=== PATIENT | female | born 1970 | race Caucasian/White ===

== ENCOUNTER 2017-05-31 14:44 | Emergency (ER) | payer OTHER ==
[2017-05-31 14:52] VITALS: BP 160/92
--- NOTE | 2017-05-31 15:21 | ER Document Report ---
HPI - HPI Pain Level: 3 Notes: Patient is a 46-year-old female presents the ED complaining of right shoulder/ neck pain with an occasional tingling into her right shoulder x1.5mos. Pt states that she was eval'd by an urgent care when she was at home ([facility]) and they did not find anything. Pt states that she is just concerned bc of the occ tingling sensation. Pt denies any known injury. Pt states that she does sleep on her right side at night. Flexion of her right arm can exac her symptom(s). She has tried otc aleve with some help. No loss of control of bowel/bladder. No muscle weakness/paralysis. Denies any changes in vision/mentation/speech. Denies any headache, fever, URI, sore throat, cough, sob, dyspnea, cp, palp, syncope, abd pain, n/v/d, dysuria, urinary retention, hematuria, other joint pains, rash. No IV drug use or smoking. No significant PMH aside from HTN and pt is supposed to be on Toprol. - ROS Notes: REVIEW OF SYSTEMS: CONSTITUTIONAL : Denies fever, chills, or sweats. Denies recent illness. EENT: Denies eye, ear, throat, or mouth pain or symptoms. Denies nasal or sinus congestion or discharge. Denies throat, tongue, or mouth swelling or difficulty swallowing. CARDIOVASCULAR: Denies chest pain. Denies palpitations or racing or irregular heart beat. Denies ankle edema. RESPIRATORY: Denies cough, cold, or chest congestion. Denies shortness of breath, difficulty breathing, or wheezing. GASTROINTESTINAL: Denies abdominal pain or distention. Denies nausea, vomiting , or diarrhea. Denies blood in vomitus, stools, or per rectum. Denies black, tarry stools. Denies constipation. GENITOURINARY: Denies difficulty urinating, painful urination, burning, frequency, blood in urine, or discharge. MUSCULOSKELETAL: see hpi SKIN: Denies rash, lesions or sores. NEUROLOGICAL: Denies confusion or altered mental status. Denies passing out or loss of consciousness. Denies dizziness or lightheadedness. Denies headache. Denies weakness or paralysis or loss of use of either side. Denies problems with gait or speech. ALL OTHER SYSTEMS REVIEWED AND NEGATIVE. Dictation was performed using [employer] recognition software - DERM Skin Color: Normal Past Medical History - Social History Smoking Status: Unknown if Ever Smoked Family History: Reviewed & Not Pertinent Patient has suicidal ideation: No Patient has homicidal ideation: No Renal/ Medical History: Denies: Hx Peritoneal Dialysis Vertical Provider Document - CONSTITUTIONAL Agree With Documented VS: Yes Notes: PHYSICAL EXAMINATION: GENERAL: Well-appearing, well-nourished and in no acute distress. HEAD: Atraumatic, normocephalic. Non-tender. EYES: Pupils equal round and reactive to light, extraocular movements intact, sclera anicteric, conjunctiva are normal. ENT: EAC clear b/l. TM's intact b/l without erythema, fluid, or perforation. Nares patent and without discharge. oropharynx clear without exudates. No tonsilar hypertrophy or erythema. Moist mucous membranes. No sinus tenderness. NECK: Normal range of motion, supple without lymphadenopathy. No rigidity/ meningismus. Spurling negative. Non-tender. Chest: non-tender. equal rise/fall. LUNGS: Breath sounds clear to auscultation bilaterally and equal. No wheezes rales or rhonchi. HEART: Regular rate and rhythm without murmurs, rubs, gallops. Musculoskeletal: UE's b/l: FROM to passive/active. Strength 5+/5. Rt shoulder: + trigger point to soft tissue near the medial border of the rt scapula. Pt states that the tenderness elicited is the pain described. + mild muscle spasming. Non-tender shoulder/arm. No vertebral point tenderness or rib tenderness. Extremities: No cyanosis, clubbing, or edema b/l. Peripheral pulses 2+. Capillary refill less than 2 seconds. NEUROLOGICAL: Cranial nerves grossly intact. Normal speech, normal gait. Normal sensory, motor exams. Reflexes 2+ b/l. PSYCH: Normal mood, normal affect. SKIN: Warm, Dry, normal turgor, no rashes or lesions noted. No ecchymosis, abrasion, laceration. - RESPIRATORY O2 Sat by Pulse Oximetry: 100 Course - Re-evaluation Re-evalutation: 05/31/17 15:32 Patient is afebrile, well-hydrated, 46-year-old female presents the ED with a found trigger point in her right scapular border, and mild muscle spasming in the area. No imaging is warranted at this time based on the H&P today. Vitals are stable. PE otherwise unremarkable for any neurological focal deficits, neck , back, shoulder tenderness otherwise. Thoroughly reviewed options with the patient is in trigger point injections, consult with chiropractic/physical therapy/orthopedics/massage therapy, and conservative measures her symptoms. Recommend she start conservative first. I will send her home with a prescription for Flexeril. Drowsiness precautions explained and the patient is not to operate heavy machinery while on the medication. Low suspicion for any fracture, epidural mass lesion, dissection, acs, pe, severe spinal stenosis causing neurological deficits, meningismus, or dissection. Recheck with her PCM in 2-3 days. Return to the ED with any worsening/concerning symptoms otherwise as reviewed. Patient is in agreement. - Vital Signs Vital signs: Temp Pulse Resp BP Pulse Ox 98.1 F 72 14 160/92 H 100 05/31/17 14:49 05/31/17 14:49 05/31/17 14:49 05/31/17 14:49 05/31/17 14:49 Discharge - Discharge Clinical Impression: Trigger point of right shoulder region, Muscle spasm Condition: Stable Disposition: HOME, SELF-CARE Additional Instructions: Rest, Ice, Compression, Elevation Use meds as directed, watch for drowsiness and do not operate heavy machinery on medication Tylenol/ibuprofen as needed Light stretches daily Strength exercises as able Moist heat and massage may help F/u with your PCP in 2-3 days for a recheck Consider consult(s) with Orthopedics, Chiropractic, Physical therapy for ongoing /worsening symptoms Return to the ED with any worsening symptoms and/or development of fever, headache, chest pain, palpitations, syncope, shortness of breath, trouble breathing, abdominal pain, n/v/d, blood in stool/urine, loss of control of bowel /bladder, urinary retention, muscle weakness/paralysis, worsening numbness/ tingling, or other worsening symptoms that are concerning to you. Prescriptions: Cyclobenzaprine HCl [Flexeril 10 mg Tablet] 10 mg PO TIDP PRN #15 tab PRN Reason: Forms: Elevated Blood Pressure Referrals: [facility] ([facility]) [Provider Group] - Follow up as needed
== END 2017-05-31 15:24 | disposition home or self-care (01) ==
LOC: ER 14:44
DX: M62.838 Other muscle spasm (principal); M25.511 Pain in right shoulder; M54.2 Cervicalgia; I10 Essential (primary) hypertension
CPT/HCPCS: 99283

== ENCOUNTER 2017-08-06 13:20 | Emergency (ER) | payer OTHER ==
--- NOTE | 2017-08-06 15:11 | ER Document Report ---
ED Wound - General Chief Complaint: Laceration Stated Complaint: LACERATION TO LEFT INDEX FINGER Time Seen by Provider: 08/06/17 14:01 Notes: 46 yo female c/o laceration to left index finger. cut finger today while cutting chicken. + active bleeding TRAVEL OUTSIDE OF THE [place] IN LAST 30 DAYS: No - HPI Patient complains to provider of: Laceration Occurred: Just prior to arrival Onset/Duration: Sudden Quality of pain: Burning Context: Injury Skin Temperature: Warm Skin Color: Normal Capillary refill: < 3 seconds Sensations intact: Yes Distal pulses present: Yes Associated Symptoms: Avulsion, Bleeding - Related Data Allergies/Adverse Reactions: Sulfa (Sulfonamide Antibiotics) Allergy (Verified 08/06/17 13:28) Past Medical History - General Information source: Patient - Social History Smoking Status: Never Smoker Chew tobacco use (# tins/day): No Frequency of alcohol use: None Drug Abuse: None Lives with: Family Family History: Reviewed & Not Pertinent - Past Medical History Cardiac Medical History: Reports: Hx Hypertension Renal/ Medical History: Denies: Hx Peritoneal Dialysis Past Surgical History: Reports: Hx Abdominal Surgery - Gastric sleeve, Hx Cholecystectomy - Immunizations Hx Diphtheria, Pertussis, Tetanus Vaccination: No Review of Systems - Review of Systems Constitutional: No symptoms reported EENT: No symptoms reported Cardiovascular: No symptoms reported Respiratory: No symptoms reported Gastrointestinal: No symptoms reported Genitourinary: No symptoms reported Female Genitourinary: No symptoms reported Musculoskeletal: No symptoms reported Skin: See HPI Hematologic/Lymphatic: No symptoms reported Neurological/Psychological: No symptoms reported Physical Exam - Vital signs Vitals: Temp Pulse Resp BP Pulse Ox 98.4 F 84 18 151/90 H 100 08/06/17 13:28 08/06/17 13:28 08/06/17 13:28 08/06/17 13:28 08/06/17 13:28 Interpretation: Normal - General General appearance: Appears well, Alert - HEENT Head: Normocephalic, Atraumatic Eyes: Normal Pupils: PERRL - Respiratory Respiratory status: No respiratory distress Chest status: Nontender Breath sounds: Normal Chest palpation: Normal - Cardiovascular Rhythm: Regular Heart sounds: Normal auscultation Murmur: No - Abdominal Inspection: Normal Distension: No distension Bowel sounds: Normal Tenderness: Nontender Organomegaly: No organomegaly - Back Back: Normal, Nontender - Extremities General upper extremity: Normal inspection, Nontender, Normal color, Normal ROM , Normal temperature General lower extremity: Normal inspection, Nontender, Normal color, Normal ROM , Normal temperature, Normal weight bearing. No: Unique's sign - Neurological Neuro grossly intact: Yes Cognition: Normal Orientation: AAOx4 [place] Coma Scale Eye Opening: Spontaneous [place] Coma Scale Verbal: Oriented [place] Coma Scale Motor: Obeys Commands [place] Coma Scale Total: 15 Speech: Normal Motor strength normal: LUE, RUE, LLE, RLE Sensory: Normal - Psychological Associated symptoms: Normal affect, Normal mood - Skin Skin Temperature: Warm Skin Moisture: Dry Skin Color: Normal Skin irregularity: Laceration - avulsion to distal palmar index finger. + active bleeding. Course - Re-evaluation Re-evalutation: 08/06/17 15:09 pt has avulasion wound. sugi-jayson and pressure dressing applied to finger. bleeding controlled at this time. SMC intact. finger tip cap applied for protection pt stable for discharge - Vital Signs Vital signs: Temp Pulse Resp BP Pulse Ox 98.4 F 84 18 151/90 H 100 08/06/17 13:28 08/06/17 13:28 08/06/17 13:28 08/06/17 13:28 08/06/17 13:28 Discharge - Discharge Clinical Impression: Avulsion of skin of finger Qualifiers: Encounter type: initial encounter Qualified Code(s): S61.209A - Unspecified open wound of unspecified finger without damage to nail, initial encounter Condition: Stable Disposition: HOME, SELF-CARE Instructions: Avulsion Injury ([facility]) Additional Instructions: You may remove dressing in 24h. gently wash area but do not remove the sugicele that was applied to your wound. it will dissolve and peel off on its own like a scab use finger tip splint for protection follow up with your primary care as needed return to ER for any worsening Forms: Return to Work
[2017-08-06] MEDS ORDERED: DIPH/PERTUSS(ACELL)/TETANUS VAC/PF 0.5 ML SYR (>=10YO) IM ONE (15:14)
[2017-08-06 15:54] VITALS: BP 139/93
== END 2017-08-06 15:44 | disposition home or self-care (01) ==
LOC: ER 13:20
PROC: 2W3KX1Z Immobilization of Left Finger using Splint (ICD-10-PCS; principal; 2017-08-06)
DX: S61.209A Unspecified open wound of unspecified finger without damage to nail, initial encounter (principal); W45.8XXA Other foreign body or object entering through skin, initial encounter; Y93.G1 Activity, food preparation and clean up
CPT/HCPCS: 90471; 90715; 99282

== ENCOUNTER 2019-05-27 08:37 | Emergency (ER) | payer MEDICAID ==
[2019-05-27 09:40] LABS: APPEARANCE,URINE CLOUDY; BILIRUBIN,URINE NEGATIVE (NEGATIVE); GLUCOSE, URINE NEGATIVE (NEGATIVE); KETONES,URINE NEGATIVE (NEGATIVE); LEUKOCYTE ESTERASE,URINE NEGATIVE (NEGATIVE); NITRITE,URINE NEGATIVE (NEGATIVE); PROTEIN,URINE NEGATIVE (NEGATIVE); URINE SPECIFIC GRAVITY 1.005; UROBILINOGEN,URINE NEGATIVE mg/dL (<2.0)
[2019-05-27 09:44] LABS: COLOR,URINE STRAW
--- NOTE | 2019-05-27 11:31 | RADIOLOGY REPORT (SQ) ---
EXAM DESCRIPTION: U/S NON-OB PELVIS TV W/O DOP COMPLETED DATE/TIME: 05/27/2019 11:20 am REASON FOR STUDY: difficulty urinating, COMPARISON: None. TECHNIQUE: Dynamic and static grayscale images acquired of the pelvis via transvaginal approach and recorded on PACS. Additional selected color Doppler and spectral images recorded. Additional transabdominal imaging was performed LIMITATIONS: None. FINDINGS: UTERUS: There is enlargement of the uterine fundus by fibroids, the largest is 11 x 9 x 8 cm in size and heterogeneous in echotexture. Uterus is 17 x 10 x 6 cm in size. ENDOMETRIAL STRIPE: No focal or generalized thickening. No masses. Endometrial stripe 3 mm in thickn ess CERVIX: Closed, 2.5 cm in length. No nabothian cysts. RIGHT OVARY AND DOPPLER: Normal size right ovary 2.9 x 2.4 x 2 cm in size. No worrisome masses. Philomena l arterial vascular flow without evidence for torsion. LEFT OVARY AND DOPPLER: Normal size left ovary 3.9 x 2.7 x 2.5 cm in size with a 2.8 cm simple cyst. No worrisome masses. Normal arterial vascular flow without evidence for torsion. FREE FLUID: None noted. OTHER: No other significant finding. IMPRESSION: Large uterine fundal fibroid. Otherwise unremarkable study. TECHNICAL DOCUMENTATION: JOB ID: [id number]- All Rights Reserved Rev-04/10 Reading location - IP/workstation name: [email or web address]
[2019-05-27] MEDS ORDERED: HYDROCODONE/ACETAMINOPHEN 5-325 MG (6 TAB/ER DISP) PO PRN (12:21)
[2019-05-27] MEDS ORDERED: ONDANSETRON ODT 4 MG TAB (6 TAB/ER DISP) PO PRN (12:21)
--- NOTE | 2019-05-27 12:21 | ER Document Report ---
ED General - General Chief Complaint: Lower Abdominal Pain Stated Complaint: FLANK PAIN Time Seen by Provider: 05/27/19 09:04 Notes: Pleasant 48-year-old female presents to the emergency department with chief complaint of bladder pain since last night. She woke up this morning and remains was unable to urinate. Her last BM was this morning. She said that when she got to the emergency department she has voided normally 2 times. She denies any fevers or chills, complains of nausea, complains of lower abdominal pain. She does have a known existing uterine fibroid and is under the care of Dr. 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 No other complaints TRAVEL OUTSIDE OF THE [place] IN LAST 30 DAYS: No - Related Data Allergies/Adverse Reactions: Sulfa (Sulfonamide Antibiotics) Allergy (Verified 08/06/17 13:28) Past Medical History - Social History Smoking Status: Never Smoker Chew tobacco use (# tins/day): No Frequency of alcohol use: Occasional Drug Abuse: None Family History: Reviewed & Not Pertinent Patient has suicidal ideation: No Patient has homicidal ideation: No - Past Medical History Cardiac Medical History: Reports: Hx Hypertension Renal/ Medical History: Denies: Hx Peritoneal Dialysis Past Surgical History: Reports: Hx Abdominal Surgery - Gastric sleeve, Hx Cholecystectomy - Immunizations Hx Diphtheria, Pertussis, Tetanus Vaccination: No Review of Systems - Review of Systems Constitutional: See HPI EENT: No symptoms reported Cardiovascular: See HPI Respiratory: See HPI Gastrointestinal: See HPI Genitourinary: See HPI Female Genitourinary: See HPI Musculoskeletal: No symptoms reported Skin: No symptoms reported Hematologic/Lymphatic: No symptoms reported Neurological/Psychological: No symptoms reported Physical Exam - Vital signs Vitals: Temp Pulse Resp BP Pulse Ox 98.2 F 81 16 132/77 H 100 05/27/19 08:42 05/27/19 08:42 05/27/19 08:42 05/27/19 08:42 05/27/19 08:42 - Notes Notes: PHYSICAL EXAMINATION: Reviewed vital signs and charting by RN GENERAL: Alert, interacts well. No acute distress. HEAD: Normocephalic, atraumatic. EYES: Pupils equal and round. Extraocular movements intact. ENT: Oral mucosa moist, tongue midline. NECK: Full range of motion. Trachea midline. LUNGS: Clear to auscultation bilaterally, no wheezes, rales, or rhonchi. No respiratory distress. HEART: Regular rate and rhythm. No murmur ABDOMEN: soft, suprapubic tenderness to palpation. No distention. Bowel sounds present EXTREMITIES: Moves all 4 extremities spontaneously. No edema, No cyanosis. PSYCH: Normal affect, normal mood. SKIN: Warm, dry, normal turgor. No rashes or lesions noted. Course - Re-evaluation Re-evalutation: 05/27/19 12:20 Overall well-appearing in no acute distress. Transvaginal ultrasound showed a large fundal uterine fibroid. Patient is able to void without problems and just micturated. She does have close follow-up with [facility]. She is stable for discharge. - Vital Signs Vital signs: Temp Pulse Resp BP Pulse Ox 98.2 F 81 16 132/77 H 100 05/27/19 08:42 05/27/19 08:42 05/27/19 08:42 05/27/19 08:42 05/27/19 08:42 - Laboratory Laboratory results interpreted by me: 05/27/19 09:21 Urine Blood SMALL H Discharge - Discharge Clinical Impression: Uterine fibroid Qualifiers: Uterine leiomyoma location: unspecified location Qualified Code(s): D25.9 - Leiomyoma of uterus, unspecified Condition: Good Disposition: HOME, SELF-CARE Additional Instructions: You were seen in the emergency department this morning for abdominal pain. The ultrasound showed that you have a large uterine fibroid. There was nothing else concerning on the ultrasound. Please make sure you see Dr. Alvarado on Friday for your follow-up appointment on June 03. In the meantime, if you have severe unremitting pain, intractable nausea or vomiting, urinary retention, abnormal vaginal bleeding, or any other concerning symptoms please immediately return to the emergency department.
[2019-05-27 12:34] VITALS: BP 130/70
== END 2019-05-27 12:33 | disposition home or self-care (01) ==
LOC: ER 08:37
DX: D25.9 Leiomyoma of uterus, unspecified (principal); R10.30 Lower abdominal pain, unspecified; I10 Essential (primary) hypertension; Z88.2 Allergy status to sulfonamides; Z90.49 Acquired absence of other specified parts of digestive tract
CPT/HCPCS: 76830; 81001; 99284

== ENCOUNTER 2019-07-28 08:02 | Day surgery (SDC) | payer BC, MEDICAID, OTHER ==
[2019-07-21 11:14] LABS: HEMATOCRIT 37.8 % (36.0-47.0); HEMOGLOBIN 13.3 g/dL (12.0-15.5); MEAN CORPUSCULAR HEMOGLOBIN 33.5 pg (27.0-33.4); MEAN CORPUSCULAR HGB CONC 35.1 g/dL (32.0-36.0); MEAN CORPUSCULAR VOLUME 96 fl (80-97); PLATELET COUNT 289 10^3/uL (150-450); RED BLOOD COUNT 3.96 10^6/uL (3.72-5.28); RED CELL DISTRIBUTION WIDTH 12.6 % (11.5-14.0); WHITE BLOOD COUNT 5.3 10^3/uL (4.0-10.5)
[2019-07-21 11:22] LABS: APPEARANCE,URINE CLOUDY; BILIRUBIN,URINE NEGATIVE (NEGATIVE); COLOR,URINE YELLOW; GLUCOSE, URINE NEGATIVE (NEGATIVE); KETONES,URINE NEGATIVE (NEGATIVE); LEUKOCYTE ESTERASE,URINE NEGATIVE (NEGATIVE); NITRITE,URINE NEGATIVE (NEGATIVE); PROTEIN,URINE NEGATIVE (NEGATIVE); URINE SPECIFIC GRAVITY 1.017; UROBILINOGEN,URINE NEGATIVE mg/dL (<2.0)
[2019-07-21 11:33] LABS: ALBUMIN 4.1 g/dL (3.5-5.0); ALKALINE PHOSPHATASE 64 U/L (38-126); ANION GAP 8 (5-19); ASPARTATE AMINO TRANSFERASE 21 U/L (14-36); BILIRUBIN,DIRECT 0.2 mg/dL (0.0-0.4); BILIRUBIN,TOTAL 0.5 mg/dL (0.2-1.3); BLOOD UREA NITROGEN 15 mg/dL (7-20); CALCIUM 9.6 mg/dL (8.4-10.2); CARBON DIOXIDE 34 mmol/L (22-30); CHLORIDE 96 mmol/L (98-107); GLUCOSE 113 mg/dL (75-110); TOTAL PROTEIN 6.7 g/dL (6.3-8.2)
[2019-07-21 11:39] LABS: POTASSIUM 2.9 mmol/L (3.6-5.0)
--- NOTE | 2019-07-21 13:09 | EKG REPORT ---
SEVERITY:- NORMAL ECG - SINUS BRADYCARDIA 51. : Confirmed by: Randell Azar MD 21-Jul-2019 13:09:30
[~2019-07-28 08:02] MED LIST: CEFAZOLIN SODIUM 2 GM in DEXTROSE 5%-WATER 100 ML IV PRN; LACTATED RINGERS 1000 ML IV PRN
[2019-07-28] MEDS ORDERED: FENTANYL CITRATE INJ/PF 250 MCG/5 ML AMPULE ONE (10:04)
[2019-07-28] MEDS ORDERED: MIDAZOLAM 2 MG/2 ML INJ ONE (10:04)
[2019-07-28] MEDS ORDERED: PROPOFOL INJ 200 MG/20 ML VIAL IV ONE (10:04)
[2019-07-28] MEDS ORDERED: BUPIVACAINE HCL 0.25 % INJ/PF (2.5 MG/1 ML) 30 ML VIAL ONE (10:16)
[2019-07-28] MEDS ORDERED: FENTANYL CITRATE INJ/PF 100 MCG/2 ML AMPUL IV PRN ×3 (11:48)
[2019-07-28] MEDS ORDERED: DIPHENHYDRAMINE HCL 50 MG/ML VIAL IV PRN ×2 (11:48→21:20)
[2019-07-28] MEDS ORDERED: MEPERIDINE HCL/PF INJ 25 MG/1 ML DISP.SYRIN IV PRN (11:48)
[2019-07-28] MEDS ORDERED: PROMETHAZINE HCL INJ 25 MG/1 ML VIAL IV PRN ×2 (11:48)
--- NOTE | 2019-07-28 12:45 | Operative Report ---
Operative Report DATE OF SURGERY: 07/28/19 PREOPERATIVE DIAGNOSIS: Menorrhagia and fibroid uterus POSTOPERATIVE DIAGNOSIS: Same OPERATION: Diagnostic laparoscopy open laparotomy with a total abdominal hysterectomy and BSO SURGEON: COLETTE DOAN 2ND Supervisor Pressing Department: GONZALO BOOTHE ANESTHESIA: GA TISSUE REMOVED OR ALTERED: Uterus tubes and ovaries COMPLICATIONS: Adhesions with endometrioma ESTIMATED BLOOD LOSS: 50 cc PROCEDURE: Was placed in the dorsolithotomy position prepped draped sterile fashion. Speculum placed cervix visualized and grasped with single-tooth tenaculum. A 2- 0 Vicryl was placed to the lip of the cervix. Sample of that of 9 cm the uterine manipulator was placed. Speculum was removed and attention turned to the abdomen where a supraumbilical midline incision was made the trocar was reduced with insufflation of the abdomen. The second puncture was made lateral to the first on the left and of 5 was introduced and a third on the right again with the 5 trocar being introduced and an accessory port above the iliac crest on the right. Robot was docked in usual fashion. Was made to enter the cul-de-sac and found to be possible secondary to adhesions the right ovary was adhered to the aspect of the ovary on the right and along the right adnexal wall. Left ovary was adhered along the left adnexa wall. Large uterine fibroid anteriorly and it was a possible to see around that with the robot. Decision was made intraoperatively open the abdomen. Robot was undocked and the abdomen deflated and trocar sleeves were removed. The incisions were closed with 4-0 Vicryl subcu. A Pfannenstiel incision was made. The incision extended through the subcutaneous tissue and fascia with sharp dissection. Muscle was bluntly sharply divided and the parietal peritoneum was entered with sharp dissection. The bowel was packed with moistened packs and the O'Marek-O'Chance retractor was placed. Uterus was grasped with a Susan thyroid clamp. The left utero- ovarian ligament was clamped divided suture with 2-0 Vicryl this was continued on the right. The right and left round ligament were identified and clamped divided Achilles free space was entered and both sides were divided and sutured with 2-0 Vicryl. The bladder flap was then created with blunt and sharp di ssection. Her uterine fibroid was then removed. All clamps only several liters each pedicle begins clamped divided and suture with 2-0 Vicryl to continue down to the level of the cervix. Cross-clamp and sharply incised and the uterus and cervix were removed. The right fallopian tube and ovary were then identified grasped with Zenaida clamp the medial pelvis on the right was identified clamped and divided suture with free tie of 2-0 Vicryl followed by a suture tie of 2-0 Vicryl right tube and ovary were thus removed. Left again the endopelvic was identified the ureter was found to be out of the way the inferior pelvic was clamped and divided in the left tube and ovary were removed. Multiple areas of oozing there were encountered these were clamped and sutured with free ties following this it was placed in the pelvis with Interceed. States was noted. It was removed as were the PACS. The parietoperitoneum was then closed using 2- 0 Vicryl the fascia and closed using 0 Vicryl and the skin was closed with subcutaneous absorbable louis. The patient's urine remained clear after procedure she was taken recovery in good condition
[2019-07-28] MEDS: FENTANYL CITRATE INJ/PF 100 MCG/2 ML AMPUL ONE ×2 (12:51→13:01)
[2019-07-28] MEDS ORDERED: MORPHINE SULFATE 10 MG/ML INJ ONE (14:05)
[2019-07-28] MEDS ORDERED: MORPHINE SULFATE 10 MG/ML INJ IM PRN (14:06)
[2019-07-28] MEDS ORDERED: ONDANSETRON HCL INJ/PF 4 MG/2 ML SDV ONE ×2 (14:18→21:38)
[2019-07-28] MEDS ORDERED: DEXAMETHASONE SOD PHOSPHATE INJ 4 MG/1 ML VIAL ONE (14:18)
[2019-07-28] MEDS ORDERED: KETOROLAC TROMETHAMINE 60 MG/2 ML SDV ONE (14:18)
[2019-07-28] MEDS ORDERED: GLYCOPYRROLATE 1 MG/5 ML VIAL ONE (14:18)
[2019-07-28] MEDS ORDERED: ROCURONIUM BROMIDE INJ 50 MG/5 ML VIAL IV ONE (14:18)
[2019-07-28] MEDS ORDERED: NEOSTIGMINE METHYLSULFATE 10 MG/10 ML VIAL ONE (14:18)
[2019-07-28] MEDS ORDERED: SUCCINYLCHOLINE CHLORIDE INJ 200 MG/10 ML VIAL ONE (14:18)
[2019-07-28] MEDS: OXYCODONE-ACETAMINOPHEN 5-325 MG TABLET PO PRN ×2 (15:22→19:56)
[2019-07-28] MEDS: IBUPROFEN 800 MG TABLET PO SCH (17:55)
[2019-07-28] MEDS ORDERED: DEXTROSE 5%-LACTATED RINGERS 1,000 ML IV PRN (21:21)
[2019-07-28] MEDS ORDERED: ONDANSETRON HCL INJ/PF 4 MG/2 ML SDV IV ONE (22:15)
[2019-07-29] MEDS: OXYCODONE-ACETAMINOPHEN 5-325 MG TABLET PO PRN ×2 (03:53→09:26)
[2019-07-29 06:23] LABS: HEMATOCRIT 24.2 % (36.0-47.0); HEMOGLOBIN 8.5 g/dL (12.0-15.5); MEAN CORPUSCULAR HEMOGLOBIN 33.9 pg (27.0-33.4); MEAN CORPUSCULAR HGB CONC 35.2 g/dL (32.0-36.0); MEAN CORPUSCULAR VOLUME 96 fl (80-97); PLATELET COUNT 216 10^3/uL (150-450); RED BLOOD COUNT 2.51 10^6/uL (3.72-5.28); RED CELL DISTRIBUTION WIDTH 12.2 % (11.5-14.0); WHITE BLOOD COUNT 8.1 10^3/uL (4.0-10.5)
--- NOTE | 2019-07-29 07:19 | PDOC PROGRESS REPORT ---
Subjective Progress Note for:: 07/29/19 Subjective:: pt states she feels well c/o left leg numbness Reason For Visit: D25.9 LEIOMYOMA OF UTERUS, UNSPECIFIED Physical Exam - Physical Exam Vital Signs: Temp Pulse Resp BP Pulse Ox 98.4 F 90 16 113/75 100 07/29/19 03:37 07/29/19 03:37 07/29/19 03:37 07/29/19 03:37 07/29/19 03:37 Intake & Output 07/28/19 07/29/19 07/30/19 06:59 06:59 06:59 Intake Total 1550 Output Total 880 Balance 670 Weight 55.9 kg General appearance: PRESENT: no acute distress GI/Abdominal exam: PRESENT: soft Result Laboratory Results: 07/29/19 05:52 07/28/19 08:18 07/28/19 07/29/19 08:18 05:52 WBC 8.1 RBC 2.51 L Hgb 8.5 L Hct 24.2 L MCV 96 MCH 33.9 H MCHC 35.2 RDW 12.2 Plt Count 216 Potassium 3.4 L Assessment & Plan - Diagnosis (1) Fibroids Is this a current diagnosis for this admission?: Yes (2) Menorrhagia Is this a current diagnosis for this admission?: Yes - Plan Summary Plan Summary: routine post op care
[2019-07-29] MEDS: IBUPROFEN 800 MG TABLET PO SCH (09:25)
[2019-07-29] MEDS ORDERED: METOPROLOL TARTRATE 100 MG TABLET PO SCH (10:00)
[2019-07-29] MEDS ORDERED: ESTROGENS,CONJUGATED 0.625 MG TABLET PO SCH (10:00)
[2019-07-29 10:20] VITALS: BP 108/70
--- NOTE | 2019-07-29 10:33 | Discharge Summary ---
Discharge Summary (SDC) - Discharge Final Diagnosis: Hysterectomy Date of Surgery: 07/28/19 Discharge Date: 07/29/19 Condition: Good Forms: Discharge POC-Adult Treatment or Instructions: Pelvic rest Referrals: COLETTE ALVARADO MD [ACTIVE STAFF] - 08/03/19 1:30 pm (Follow up at your scheduled appt with Dr. Alvarado) Discharge Diet: As Tolerated Respiratory Treatments at Home: Deep Breathing/Coughing Discharge Activity: Activity As Tolerated, Balance Activity w/Rest, No Lifting Over 10 Pounds, No Lifting/Push/Pulling, Pelvic Rest, No tub bath Home Care Assistance: None Needed Report the Following to Your Physician Immediately: Shortness of Breath, Increase in Pain, Fever over 101 Degrees, Unusual Bleeding, Drainage-Foul Smelling, Increased Vaginal Bleed, Large Clots, IV Site Infection Signs, Urinary Infection Signs
--- NOTE | 2019-07-29 10:40 | PDOC DISCHARGE SUMMARY ---
General - Admit/Disc Date/PCP Admission Date/Primary Care Provider: EFRAÍN CALL MD Discharge Date: 07/29/19 - Discharge Diagnosis (1) Fibroids Is this a current diagnosis for this admission?: Yes (2) Menorrhagia Is this a current diagnosis for this admission?: Yes - Additional Information Resuscitation Status: Full Code Discharge Diet: As Tolerated Discharge Activity: Activity As Tolerated, Balance Activity w/Rest, No Lifting Over 10 Pounds, No Lifting/Push/Pulling, Pelvic Rest, No tub bath Home Medications: Ibuprofen [Motrin 600 mg Tablet] 800 mg PO TID PRN 07/21/19 Metoprolol Tartrate [Lopressor] 1 tab PO DAILY 07/21/19 History of Present Illness Patient complains of: SFU, menorrhagia History of Present Illness: LI WILSON is a 48 year old female Hospital Course Hospital Course: Admitted on 07/28 for SFU and menorrhagia, Underwent uncomplicated hysterectomy Physical Exam - Physical Exam Vital Signs: Temp Pulse Resp BP Pulse Ox 98.9 F 85 17 108/70 100 07/29/19 10:23 07/29/19 10:23 07/29/19 10:23 07/29/19 10:23 07/29/19 10:23 Intake & Output 07/28/19 07/29/19 07/30/19 06:59 06:59 06:59 Intake Total 1550 Output Total 880 Balance 670 Weight 55.9 kg General appearance: PRESENT: no acute distress, well-developed, well-nourished Head exam: PRESENT: atraumatic, normocephalic Respiratory exam: PRESENT: clear to auscultation say, symmetrical, unlabored Pulses: PRESENT: normal carotid pulses GI/Abdominal exam: PRESENT: normal bowel sounds, soft. ABSENT: distended, guarding, mass, organolmegaly, rebound, tenderness Rectal exam: PRESENT: deferred Extremities exam: PRESENT: full ROM. ABSENT: calf tenderness, clubbing, pedal edema Musculoskeletal exam: PRESENT: ambulatory Neurological exam: PRESENT: alert, awake, oriented to person, oriented to place, oriented to time, oriented to situation, CN II-XII grossly intact. ABSENT: motor sensory deficit Skin exam: PRESENT: dry, intact, warm. ABSENT: cyanosis, rash Result Laboratory Results: 07/29/19 05:52 07/28/19 08:18 07/29/19 05:52 WBC 8.1 RBC 2.51 L Hgb 8.5 L Hct 24.2 L MCV 96 MCH 33.9 H MCHC 35.2 RDW 12.2 Plt Count 216 Status: Imported from PACS Plan Discharge Plan: Discharge to home Acute Heart Failure - Is this a Heart Failure Patient?: No
--- NOTE | 2019-07-29 10:49 | PDOC DISCHARGE SUMMARY ---
General - Admit/Disc Date/PCP Admission Date/Primary Care Provider: Dr. Alvarado, 07/28/19 Discharge Date: 07/29/19 - Discharge Diagnosis (1) S/P total abdominal hysterectomy Is this a current diagnosis for this admission?: Yes (2) Fibroids Is this a current diagnosis for this admission?: Yes (3) Menorrhagia Is this a current diagnosis for this admission?: Yes - Additional Information Resuscitation Status: Full Code Discharge Diet: As Tolerated Discharge Activity: Activity As Tolerated, Balance Activity w/Rest, No Lifting Over 10 Pounds, No Lifting/Push/Pulling, Pelvic Rest, No tub bath Prescriptions: Oxycodone HCl/Acetaminophen [Percocet 5-325 mg Tablet] 1 tab PO Q6HP PRN #20 tablet PRN Reason: Ibuprofen [Motrin 600 mg Tablet] 800 mg PO TID PRN #60 PRN Reason: Estrogens,Conjugated [Premarin 0.625 mg Tablet] 0.625 mg PO DAILY #30 tablet Home Medications: Metoprolol Tartrate [Lopressor] 1 tab PO DAILY 07/21/19 Estrogens,Conjugated [Premarin 0.625 mg Tablet] 0.625 mg PO DAILY #30 tablet 07/29/19 Ibuprofen [Motrin 600 mg Tablet] 800 mg PO TID PRN #60 07/29/19 Oxycodone HCl/Acetaminophen [Percocet 5-325 mg Tablet] 1 tab PO Q6HP PRN #20 tablet 07/29/19 History of Present Illness History of Present Illness: LI WILSON is a 48 year old female admitted yesterday after [facility] per Dr. Alvarado Physical Exam - Physical Exam Vital Signs: Temp Pulse Resp BP Pulse Ox 98.9 F 85 17 108/70 100 07/29/19 10:23 07/29/19 10:23 07/29/19 10:23 07/29/19 10:23 07/29/19 10:23 Intake & Output 07/28/19 07/29/19 07/30/19 06:59 06:59 06:59 Intake Total 1550 Output Total 880 Balance 670 Weight 55.9 kg Result Laboratory Results: 07/29/19 05:52 07/28/19 08:18 07/29/19 05:52 WBC 8.1 RBC 2.51 L Hgb 8.5 L Hct 24.2 L MCV 96 MCH 33.9 H MCHC 35.2 RDW 12.2 Plt Count 216 Plan Discharge Plan: f/u at [facility] as scheduled 08/03/19 Acute Heart Failure - Is this a Heart Failure Patient?: No Follow-up Appointment scheduled within 7 days?: Yes
== END 2019-07-29 11:45 | disposition home or self-care (01) ==
LOC: OROUT 08:02 → 2N 13:45 → OROUT 07-29 11:45
PROVIDERS: ATTEND Obstetrics & Gynecology Gynecology
DX: D25.1 Intramural leiomyoma of uterus (principal); D25.2 Subserosal leiomyoma of uterus; N83.8 Other noninflammatory disorders of ovary, fallopian tube and broad ligament; N92.0 Excessive and frequent menstruation with regular cycle; Z53.31 Laparoscopic surgical procedure converted to open procedure; I10 Essential (primary) hypertension; J45.909 Unspecified asthma, uncomplicated; Z01.818 Encounter for other preprocedural examination
CPT/HCPCS: 93005; 86900; 86901; 36415 ×3; 86850; 84132; 84703; 85027 ×2; 81025; 80053; 81001; 88307 ×2; 93010; 00840; 58150; 58572; J2250; J0690; J3490 ×3; J1100; J1200; J1885; J3010 ×2; J2270 ×2; J2710; J0330; J2405; J7060; J7121; J2704; 840

== ENCOUNTER 2019-09-30 20:27 | Emergency (ER) | payer BC ==
[2019-09-30] MEDS ORDERED: PREDNISONE 20 MG TABLET PO ONE (20:57)
[2019-09-30] MEDS ORDERED: FAMOTIDINE 20 MG TABLET PO ONE (20:57)
--- NOTE | 2019-09-30 20:59 | ER Document Report ---
ED Medical Screen (RME) - General Chief Complaint: Insect Bite Stated Complaint: POSSIBLE ALLERGIC REACTION Time Seen by Provider: 09/30/19 20:51 Primary Care Provider: EFRAÍN CALL MD [Primary Care Provider] - Follow up as needed Mode of Arrival: Ambulatory Information source: Patient Notes: 48-year-old female presents to ED for complaint of insect bite around 630 this evening. She states she noticed that it was swelling about 630 she is not sure when she got better but what bit her. She stated about 7:00 she felt like her throat was getting tight and took some Benadryl at 730 50 mg capsules and a little bit of liquid because the pills would take longer to work. Had any other medication. Only medical history is hysterectomy and gallbladder removed and she does not smoke or use drugs but she does drink about every other week. Give her some prednisone and Pepcid and she will get reexamined. I have greeted and performed a rapid initial assessment of this patient. A comprehensive ED assessment and evaluation of the patient, analysis of test results and completion of medical decision making process will be conducted by an additional ED providers. TRAVEL OUTSIDE OF THE [place] IN LAST 30 DAYS: No - Related Data Allergies/Adverse Reactions: gluten Allergy (Intermediate, Verified 07/28/19 14:52) hydrocodone Allergy (Verified 07/28/19 08:18) Sulfa (Sulfonamide Antibiotics) Allergy (Verified 07/21/19 10:28) Home Medications: Metoprolol Past Medical History - Social History Frequency of alcohol use: Occasional Drug Abuse: None - Past Medical History Cardiac Medical History: Reports: Hx Hypertension Denies: Hx Coronary Artery Disease, Hx Heart Attack Pulmonary Medical History: Denies: Hx Asthma, Hx Bronchitis, Hx COPD, Hx Pneumonia Neurological Medical History: Denies: Hx Cerebrovascular Accident, Hx Seizures Renal/ Medical History: Denies: Hx Peritoneal Dialysis Musculoskeltal Medical History: Denies Hx Arthritis Past Surgical History: Reports: Hx Abdominal Surgery - Gastric sleeve, Hx Cholecystectomy - Immunizations Hx Diphtheria, Pertussis, Tetanus Vaccination: No Physical Exam - Vital signs Vitals: Temp Pulse Resp BP Pulse Ox 97.9 F 59 L 16 148/99 H 100 09/30/19 20:41 09/30/19 20:41 09/30/19 20:41 09/30/19 20:41 09/30/19 20:41 Course - Vital Signs Vital signs: Temp Pulse Resp BP Pulse Ox 97.9 F 59 L 16 148/99 H 100 09/30/19 20:41 09/30/19 20:41 09/30/19 20:41 09/30/19 20:41 09/30/19 20:41 Doctor's Discharge - Discharge Referrals: EFRAÍN CALL MD [Primary Care Provider] - Follow up as needed
--- NOTE | 2019-09-30 23:42 | ER Document Report ---
HPI - HPI Time Seen by Provider: 09/30/19 20:51 Pain Level: 3 Context: Patient is a 48-year-old female that comes emergency department for chief complaint of a sudden rash that broke out onto her left arm with some mild swelling and itching to the area, she states she also started getting itching in her throat. She took 50 mg of Benadryl and came to the emergency department. She was given prednisone and famotidine, after this the itching in her throat resolved, redness has almost completely resolved in her arm, she has no other complaints. She denies any other symptoms. Past medical history of hysterectomy, cholecystectomy. Denies any medications. Denies obvious contact, she states she thinks she was bit or stung by an insect. Onset was 6:30 PM. - RESPIRATORY Respiratory: DENIES: Trouble Breathing - REPRODUCTIVE Reproductive: DENIES: : Past Medical History - General Information source: Patient - Social History Smoking Status: Never Smoker Frequency of alcohol use: Occasional Drug Abuse: None Lives with: Family Family History: Reviewed & Not Pertinent Patient has suicidal ideation: No Patient has homicidal ideation: No - Past Medical History Cardiac Medical History: Reports: Hx Hypertension Denies: Hx Coronary Artery Disease, Hx Heart Attack Pulmonary Medical History: Denies: Hx Asthma, Hx Bronchitis, Hx COPD, Hx Pneumonia Neurological Medical History: Denies: Hx Cerebrovascular Accident, Hx Seizures Renal/ Medical History: Denies: Hx Peritoneal Dialysis Musculoskeletal Medical History: Denies Hx Arthritis Past Surgical History: Reports: Hx Abdominal Surgery - Gastric sleeve, Hx Cholecystectomy, Hx Hysterectomy - Immunizations Hx Diphtheria, Pertussis, Tetanus Vaccination: No Vertical Provider Document - CONSTITUTIONAL General Appearance: WD/WN, No Apparent Distress - INFECTION CONTROL TRAVEL OUTSIDE OF THE [place] IN LAST 30 DAYS: No - HEENT HEENT: Atraumatic, Normal ENT Exam - Patent airway, normal uvula, normal tongue, normal lips, normal ENT exam, Normocephalic - NECK Neck: Normal Inspection - RESPIRATORY Respiratory: Breath Sounds Normal, No Respiratory Distress - CARDIOVASCULAR Cardiovascular: Regular Rate, Regular Rhythm - GI/ABDOMEN Gastrointestinal: Abdomen Soft, Abdomen Non-Tender - BACK Back: Normal Inspection - MUSCULOSKELETAL/EXTREMETIES Musculoskeletal/Extremeties: MAEW, FROM, Non-Tender - NEURO Level of Consciousness: Awake, Alert, Appropriate Motor/Sensory: No Motor Deficit, No Sensory Deficit - DERM Integumentary: Warm, Dry, Rash - There is a slight area of erythema that is raised over the left mid forearm, no other signs of rash noted, unremarkable otherwise Course - Re-evaluation Re-evalutation: Patient has had several hours after treatment, symptoms have almost completely resolved. Because of her reported symptoms she will be given EpiPen along with treatments at home, discussed follow-up and return precautions. Patient and family state appreciation and agreement. - Vital Signs Vital signs: Temp Pulse Resp BP Pulse Ox 97.9 F 59 L 16 148/99 H 100 09/30/19 20:41 09/30/19 20:41 09/30/19 20:41 09/30/19 20:41 09/30/19 20:41 Discharge - Discharge Clinical Impression: Allergic reaction Qualifiers: Encounter type: initial encounter Qualified Code(s): T78.40XA - Allergy, unspecified, initial encounter Condition: Stable Disposition: HOME, SELF-CARE Additional Instructions: Examination is consistent with urticaria, this appears to be an allergic reaction. I recommend you take the prednisone as prescribed to completion, take the cetirizine and Pepcid daily for the next week. Follow-up with primary care. In the event of a severe allergic reaction (swelling of the face, lips, tongue, throat, etc) take the epinephrine pen and return immediately to the emergency department. Prescriptions: Cetirizine HCl [All Day Allergy] 10 mg PO DAILY #30 capsule Prednisone [Deltasone 10 mg Tablet] 10 mg PO ASDIR PRN #21 tablet PRN Reason: Epinephrine [Epipen 2-Yossi] 0.3 mg IM ASDIR PRN #1 packet PRN Reason: Famotidine [Pepcid 20 mg Tablet] 20 mg PO DAILY #12 tablet Referrals: DORITA DAVIS PA-C [Primary Care Provider] - Follow up as needed
[2019-10-01 00:27] VITALS: BP 128/80
== END 2019-10-01 00:03 | disposition home or self-care (01) ==
LOC: ER 20:27
DX: T78.40XA Allergy, unspecified, initial encounter (principal); R21 Rash and other nonspecific skin eruption; R09.89 Other specified symptoms and signs involving the circulatory and respiratory systems; X58.XXXA Exposure to other specified factors, initial encounter; I10 Essential (primary) hypertension
CPT/HCPCS: 99283; J7512

== ENCOUNTER 2020-07-03 11:29 | Emergency (ER) | payer BC ==
--- NOTE | 2020-07-03 13:13 | ER Document Report ---
ED General - General Chief Complaint: Abnormal Lab Results Stated Complaint: ABNORMAL LABS Time Seen by Provider: 07/03/20 13:11 Primary Care Provider: DORITA DAVIS PA-C [Primary Care Provider] - Follow up as needed Mode of Arrival: Ambulatory Information source: Patient Notes: 07/03/20 13:10 - ED Nursing Note by RICHARD MCCARTY Num: [id number] : 1970 Patient Age: 49 pt reports she went to see md. blood test were done. states her potassium level was low. states test was done over 10 days ago. states she has been feeling very tired. states she has a pulled muscle to the right upper back and it has been causing headaches and nausea. pt is alert and oriented. resp are even and unlabored. Initialized on 07/03/20 13:10 - END OF NOTE ED Medical Screen (RME)[facility] notes - General Chief Complaint: Abnormal Lab Results Stated Complaint: ABNORMAL LABS Time Seen by Provider: 07/03/20 13:11 Primary Care Provider: DORITA DAVIS PA-C [Primary Care Provider] - Follow up as needed Mode of Arrival: Ambulatory Information source: Patient Notes: 49-year-old female presents to ED for complaint of fatigue tired headache and pulled muscles. She states she went to her primary care doctor they did some lab work and she had a low potassium. She stated this could be part of why she is tired and fatigued. We will get blood work get a complete chemistry CBC magnesium and phosphorus will treat patient with calcium p.o. in the emergency room. Will get EKG as well. She will be seen by another provider. TRAVEL OUTSIDE OF THE [place] IN LAST 30 DAYS: No - Related Data Allergies/Adverse Reactions: gluten Allergy (Intermediate, Verified 07/03/20 13:09) hydrocodone Allergy (Verified 07/03/20 13:09) Sulfa (Sulfonamide Antibiotics) Allergy (Verified 07/03/20 13:09) MY NOTES 49-year-old female arrives with her with chief complaint of 1.5-month history of feeling very weak and diffuse headache. Patient has been on HCTZ for 2 months now as well as metoprolol. Patient is lost 75 pounds over 3 years after having a gastric sleeve placed. She had a gastric sleeve because she had hypertension done. Patient saw her doctor who advised Tylenol 3 with codeine for her headaches but this did not help her headaches. She also has had some sore throat and sinus problems. 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 This occurred around 1 month ago as well. Patient denies any history of head trauma but her mother did from a brain aneurysm at age 62. Labs are drawn and she was positive for elevated cholesterol triglycerides but normal thyroid and CBC. She did have a 2.6 potassium. TRAVEL OUTSIDE OF THE [place] IN LAST 30 DAYS: No - HPI Onset: Just prior to arrival Onset/Duration: Sudden Quality of pain: Achy - DAMON Severity: Mild Pain Level: 2 Associated symptoms: Headache Exacerbated by: Denies Relieved by: Denies Similar symptoms previously: No Recently seen / treated by doctor: No - Related Data Allergies/Adverse Reactions: gluten Allergy (Intermediate, Verified 07/03/20 13:09) hydrocodone Allergy (Verified 07/03/20 13:09) Sulfa (Sulfonamide Antibiotics) Allergy (Verified 07/03/20 13:09) Past Medical History - General Information source: Patient - Social History Smoking Status: Unknown if Ever Smoked Cigarette use (# per day): No Chew tobacco use (# tins/day): No Smoking Education Provided: No Frequency of alcohol use: None Drug Abuse: None Lives with: Family Family History: Reviewed & Not Pertinent Patient has suicidal ideation: No Patient has homicidal ideation: No - Past Medical History Cardiac Medical History: Reports: Hx Hypertension Denies: Hx Coronary Artery Disease, Hx Heart Attack Pulmonary Medical History: Denies: Hx Asthma, Hx Bronchitis, Hx COPD, Hx Pneumonia Neurological Medical History: Denies: Hx Cerebrovascular Accident, Hx Seizures Renal/ Medical History: Denies: Hx Peritoneal Dialysis Musculoskeletal Medical History: Denies Hx Arthritis Past Surgical History: Reports: Hx Abdominal Surgery - Gastric sleeve, Hx Cholecystectomy, Hx Hysterectomy - Immunizations Hx Diphtheria, Pertussis, Tetanus Vaccination: No Review of Systems - Review of Systems Constitutional: See HPI, Weakness EENT: No symptoms reported Cardiovascular: No symptoms reported Respiratory: No symptoms reported Gastrointestinal: No symptoms reported Genitourinary: No symptoms reported Female Genitourinary: No symptoms reported Musculoskeletal: See HPI, Neck pain Skin: No symptoms reported Hematologic/Lymphatic: No symptoms reported Neurological/Psychological: See HPI, Headaches Physical Exam - Vital signs Vitals: Temp Pulse Resp BP Pulse Ox 98.8 F 72 16 113/78 98 07/03/20 11:49 07/03/20 11:49 07/03/20 11:49 07/03/20 11:49 07/03/20 11:49 Interpretation: Hypotensive - HEENT Head: Normocephalic, Atraumatic Eyes: Normal Pupils: PERRL Pharynx: Normal Neck: Other - tender right trapezial mm pain on rom p/p - Respiratory Respiratory status: No respiratory distress Chest status: Nontender Breath sounds: Normal Chest palpation: Normal - Cardiovascular Rhythm: Regular Heart sounds: Normal auscultation Murmur: No - Abdominal Inspection: Normal Distension: No distension Bowel sounds: Normal Tenderness: Nontender Organomegaly: No organomegaly - Rectal Hemorrhoids: Other - deferred - Genitourinary Bimanuel exam: Other - deferred - Back Back: Normal - Extremities General upper extremity: Normal inspection General lower extremity: Normal inspection - Neurological Neuro grossly intact: Yes Cognition: Normal Orientation: AAOx4 Destiny Coma Scale Eye Opening: Spontaneous Spencer Coma Scale Verbal: Oriented Spencer Coma Scale Motor: Obeys Commands Spencer Coma Scale Total: 15 Speech: Normal Motor strength normal: LUE, RUE, LLE, RLE Sensory: Normal - Psychological Associated symptoms: Normal affect - Skin Skin Temperature: Warm Skin Moisture: Dry Skin Color: Normal Course - Vital Signs Vital signs: Temp Pulse Resp BP Pulse Ox 98.8 F 72 16 113/78 98 07/03/20 13:09 07/03/20 11:49 07/03/20 11:49 07/03/20 11:49 07/03/20 11:49 - Laboratory Result Diagrams: 07/03/20 13:22 07/03/20 13:22 Laboratory results interpreted by me: 07/03/20 13:22 Sodium 133.0 L Potassium 3.3 L Est GFR ( Amer) 57 L Est GFR (MDRD) Non-Af 47 L - Diagnostic Test Radiology reviewed: Reports reviewed Discharge - Discharge Clinical Impression: Hypokalemia, Weakness, trapezial muscle right sided strain Headache Qualifiers: Headache type: unspecified Headache chronicity pattern: chronic headache Intractability: not intractable Qualified Code(s): R51 - Headache Condition: Good Disposition: HOME, SELF-CARE Additional Instructions: Follow-up with personal doctor this week return to ER as needed off work as directed encourage fluids take your potassium medicine with a meal. You may also take Slow-Mag [id number] to help with any potassium loss. Your magnesium level was normal today.cut your HCTZ in half for daily intake ie take 12.5 mg daily Prescriptions: Potassium Chloride [K-Tab ER] 20 meq PO DAILY #30 tablet.er Forms: Return to Work Referrals: DORITA DAVIS PA-C [Primary Care Provider] - Follow up as needed
[2020-07-03] MEDS ORDERED: POTASSIUM CHLORIDE 10 MEQ TABLET.ER PO ONE ×2 (13:16→16:00)
[2020-07-03] MEDS ORDERED: ONDANSETRON 4 MG TAB.RAPDIS PO ONE ×2 (13:16→15:45)
--- NOTE | 2020-07-03 13:16 | ER Document Report ---
ED Medical Screen (RME) - General Chief Complaint: Abnormal Lab Results Stated Complaint: ABNORMAL LABS Time Seen by Provider: 07/03/20 13:11 Primary Care Provider: DORITA DAVIS PA-C [Primary Care Provider] - Follow up as needed Mode of Arrival: Ambulatory Information source: Patient Notes: 49-year-old female presents to ED for complaint of fatigue tired headache and pulled muscles. She states she went to her primary care doctor they did some lab work and she had a low potassium. She stated this could be part of why she is tired and fatigued. We will get blood work get a complete chemistry CBC magnesium and phosphorus will treat patient with calcium p.o. in the emergency room. Will get EKG as well. She will be seen by another provider. TRAVEL OUTSIDE OF THE [place] IN LAST 30 DAYS: No - Related Data Allergies/Adverse Reactions: gluten Allergy (Intermediate, Verified 07/03/20 13:09) hydrocodone Allergy (Verified 07/03/20 13:09) Sulfa (Sulfonamide Antibiotics) Allergy (Verified 07/03/20 13:09) Past Medical History - Past Medical History Cardiac Medical History: Reports: Hx Hypertension Denies: Hx Coronary Artery Disease, Hx Heart Attack Pulmonary Medical History: Denies: Hx Asthma, Hx Bronchitis, Hx COPD, Hx Pneumonia Neurological Medical History: Denies: Hx Cerebrovascular Accident, Hx Seizures Renal/ Medical History: Denies: Hx Peritoneal Dialysis Musculoskeltal Medical History: Denies Hx Arthritis Past Surgical History: Reports: Hx Abdominal Surgery - Gastric sleeve, Hx Cholecystectomy, Hx Hysterectomy - Immunizations Hx Diphtheria, Pertussis, Tetanus Vaccination: No Physical Exam - Vital signs Vitals: Temp Pulse Resp BP Pulse Ox 98.8 F 72 16 113/78 98 07/03/20 11:49 07/03/20 11:49 07/03/20 11:49 07/03/20 11:49 07/03/20 11:49 Course - Vital Signs Vital signs: Temp Pulse Resp BP Pulse Ox 98.8 F 72 16 113/78 98 07/03/20 11:49 07/03/20 11:49 07/03/20 11:49 07/03/20 11:49 07/03/20 11:49 Doctor's Discharge - Discharge Referrals: DORITA DAVIS PA-C [Primary Care Provider] - Follow up as needed
[2020-07-03 14:05] LABS: ABSOLUTE EOSINOPHILS # (AUTO) 0.1 10^3/uL (0.0-0.6); ABSOLUTE LYMPHOCYTES (AUTO) 2.1 10^3/uL (0.5-4.7); ABSOLUTE MONOCYTES (AUTO) 0.4 10^3/uL (0.1-1.4); BASOPHILS % (AUTO) 0.5 % (0-2); EOSINOPHILS % (AUTO) 1.3 % (0-6); HEMOGLOBIN 12.8 g/dL (12.0-15.5); MEAN CORPUSCULAR HEMOGLOBIN 33.3 pg (27.0-33.4); MEAN CORPUSCULAR HGB CONC 34.6 g/dL (32.0-36.0); MEAN CORPUSCULAR VOLUME 96 fl (80-97); MONOCYTES % (AUTO) 7.6 % (3-13); PLATELET COUNT 343 10^3/uL (150-450); RED BLOOD COUNT 3.85 10^6/uL (3.72-5.28); RED CELL DISTRIBUTION WIDTH 13.1 % (11.5-14.0); SEGMENTED NEUTROPHILS % (AUTO) 53.6 % (42-78); TOTAL CELLS COUNTED % (AUTO) 100 %; WHITE BLOOD COUNT 5.6 10^3/uL (4.0-10.5)
[2020-07-03 14:27] LABS: ALBUMIN 4.1 g/dL (3.5-5.0); ALKALINE PHOSPHATASE 74 U/L (38-126); ANION GAP 7 (5-19); ASPARTATE AMINO TRANSFERASE 18 U/L (14-36); BILIRUBIN,TOTAL 0.4 mg/dL (0.2-1.3); BLOOD UREA NITROGEN 14 mg/dL (7-20); CALCIUM 9.7 mg/dL (8.4-10.2); CARBON DIOXIDE 28 mmol/L (22-30); CHLORIDE 98 mmol/L (98-107); GLUCOSE 110 mg/dL (75-110); PHOSPHORUS 4.5 mg/dL (2.5-4.5); POTASSIUM 3.3 mmol/L (3.6-5.0); TOTAL PROTEIN 7.1 g/dL (6.3-8.2)
--- NOTE | 2020-07-03 14:47 | RADIOLOGY REPORT (SQ) ---
EXAM DESCRIPTION: CT HEAD WITHOUT IMAGES COMPLETED DATE/TIME: 07/03/2020 2:28 pm REASON FOR STUDY: headache COMPARISON: None. TECHNIQUE: Axial images acquired through the brain without intravenous contrast. Images reviewed wi th bone, brain and subdural windows. Additional sagittal and coronal reconstructions were generated. Images stored on PACS. All CT scanners at this facility use dose modulation, iterative reconstruction, and/or weight based d osing when appropriate to reduce radiation dose to as low as reasonably achievable (ALARA). [facility]: Dose Right [facility]: CareDose [facility]: Dose Right [facility]: Teradose 4D [facility]: [employer] RADIATION DOSE: CT Rad equipment meets quality standard of care and radiation dose reduction techniq ues were employed. CTDIvol: 53.2 mGy. DLP: 1070 mGy-cm. mGy. LIMITATIONS: None. FINDINGS: VENTRICLES: Normal size and contour. CEREBRUM: No masses. No hemorrhage. No midline shift. No evidence for acute infarction. Normal gra y/white matter differentiation. No areas of low density in the white matter. CEREBELLUM: No masses. No hemorrhage. No alteration of density. No evidence for acute infarction. EXTRAAXIAL SPACES: No fluid collections. No masses. ORBITS AND GLOBE: No intra- or extraconal masses. Normal contour of globe without masses. CALVARIUM: No fracture. PARANASAL SINUSES: No fluid or mucosal thickening. SOFT TISSUES: No mass or hematoma. OTHER: No other significant finding. IMPRESSION: NO ACUTE INTRACRANIAL IMAGING FINDINGS. EVIDENCE OF ACUTE STROKE: NO. COMMENT: Quality ID # [id number]: Final reports with documentation of one or more dose reduction techniques (e.g., Automated exposure control, adjustment of the mA and/or kV according to patient size, use of iterative reconstruction technique) TECHNICAL DOCUMENTATION: JOB ID: [id number] 2010 [employer]- All Rights Reserved Reading location - IP/workstation name: [email or web address]
[2020-07-03 15:53] VITALS: BP 137/93
--- NOTE | 2020-07-04 19:39 | EKG REPORT ---
SEVERITY:- BORDERLINE ECG - SINUS RHYTHM BORDERLINE T ABNORMALITIES, ANTERIOR LEADS : Confirmed by: Shahzad Brown MD 04-Jul-2020 19:38:48
== END 2020-07-03 15:54 | disposition home or self-care (01) ==
LOC: ER 11:29
DX: E87.6 Hypokalemia (principal); S29.012A Strain of muscle and tendon of back wall of thorax, initial encounter; X50.9XXA Other and unspecified overexertion or strenuous movements or postures, initial encounter; Y93.89 Activity, other specified; Y92.512 Supermarket, store or market as the place of occurrence of the external cause; Y99.0 Civilian activity done for income or pay; R53.1 Weakness; R51 Headache; R11.0 Nausea; R53.83 Other fatigue; M54.2 Cervicalgia; J02.9 Acute pharyngitis, unspecified; I10 Essential (primary) hypertension; Z98.84 Bariatric surgery status; Z91.018 Allergy to other foods; Z88.6 Allergy status to analgesic agent; Z88.5 Allergy status to narcotic agent; Z88.2 Allergy status to sulfonamides; Z79.899 Other long term (current) drug therapy
CPT/HCPCS: 93005; 99285; 36415; 83735; 84100; 85025; 86308; 80053; 70450; 93010; S0119

== ENCOUNTER 2020-08-24 09:14 | Emergency (ER) | payer BC ==
[2020-08-24] MEDS ORDERED: MECLIZINE HCL 25 MG TABLET PO ONE (09:55)
--- NOTE | 2020-08-24 09:56 | ER Document Report ---
ED Dizziness/Weakness - General Chief Complaint: Headache Stated Complaint: DIZZINESS Time Seen by Provider: 08/24/20 09:26 Primary Care Provider: DOMINGA JEROME MD [ACTIVE STAFF] - Follow up as needed Mode of Arrival: Ambulatory Information source: Patient Notes: 49-year-old female patient presents emergency department chief complaint of dizziness. Patient reports she has felt dizzy for the last 2 days, states that she feels like the room is spinning around her. She denies any chest pain, shortness of breath or any other symptoms. She also reports she has been having recurrent headaches for last 2 months. TRAVEL OUTSIDE OF THE [place] IN LAST 30 DAYS: No - Related Data Allergies/Adverse Reactions: gluten Allergy (Intermediate, Verified 08/24/20 09:18) hydrocodone Allergy (Verified 08/24/20 09:18) Sulfa (Sulfonamide Antibiotics) Allergy (Verified 08/24/20 09:18) Home Medications: Metoprolol 100mg daily. Estradiol 1 mg daily Past Medical History - General Information source: Patient - Social History Smoking Status: Never Smoker Chew tobacco use (# tins/day): No Frequency of alcohol use: Occasional Drug Abuse: None Family History: Reviewed & Not Pertinent Patient has homicidal ideation: No - Past Medical History Cardiac Medical History: Reports: Hx Hypertension Denies: Hx Coronary Artery Disease, Hx Heart Attack Pulmonary Medical History: Denies: Hx Asthma, Hx Bronchitis, Hx COPD, Hx Pneumonia Neurological Medical History: Denies: Hx Cerebrovascular Accident, Hx Seizures Renal/ Medical History: Denies: Hx Peritoneal Dialysis Musculoskeletal Medical History: Denies Hx Arthritis Past Surgical History: Reports: Hx Abdominal Surgery - Gastric sleeve, Hx Cholecystectomy, Hx Hysterectomy - Immunizations Hx Diphtheria, Pertussis, Tetanus Vaccination: No Review of Systems - Review of Systems Constitutional: Other - Dizziness, feels like the room spinning EENT: No symptoms reported Cardiovascular: No symptoms reported Respiratory: No symptoms reported Gastrointestinal: No symptoms reported Genitourinary: No symptoms reported Female Genitourinary: No symptoms reported Musculoskeletal: No symptoms reported Skin: No symptoms reported Hematologic/Lymphatic: No symptoms reported Neurological/Psychological: No symptoms reported Physical Exam - Vital signs Vitals: Pulse Resp BP Pulse Ox 52 L 14 144/90 H 100 08/24/20 09:23 08/24/20 09:23 08/24/20 09:23 08/24/20 09:23 - Notes Notes: PHYSICAL EXAMINATION: GENERAL: Well-appearing, well-nourished and in no acute distress. HEAD: Atraumatic, normocephalic. EYES: Pupils equal round and reactive to light, extraocular movements intact, conjunctiva are normal. ENT: Nares patent, oropharynx clear without exudates. Moist mucous membranes. NECK: Normal range of motion, supple without lymphadenopathy LUNGS: Breath sounds clear to auscultation bilaterally and equal. No wheezes rales or rhonchi. HEART: Regular rate and rhythm without murmurs ABDOMEN: Soft, nontender, nondistended abdomen. No guarding, no rebound. No masses appreciated. Female : deferred Musculoskeletal: Normal range of motion, no pitting or edema. No cyanosis. NEUROLOGICAL: Cranial nerves grossly intact. Normal speech, normal gait. Normal sensory, motor exams PSYCH: Normal mood, normal affect. SKIN: Warm, Dry, normal turgor, no rashes or lesions noted. Course - Re-evaluation Re-evalutation: Patient's work-up today has been reassuring. Her vital signs were within normal limits, other than bradycardia however upon reviewing her record she has been bradycardic in the past.. She did have some symptomatic relief with the meclizine. A prescription will be sent. She was encouraged to follow-up with ENT as she has had this in the past and required treatment by ENT. Patient given ED return precautions and she verbalized understanding and agreement with same. - Vital Signs Vital signs: Temp Pulse Resp BP Pulse Ox 97.8 F 87 16 138/82 H 99 08/24/20 13:18 08/24/20 13:18 08/24/20 13:18 08/24/20 13:18 08/24/20 13:18 - Laboratory Result Diagrams: 08/24/20 10:31 08/24/20 10:31 Laboratory results interpreted by me: 08/24/20 08/24/20 10:31 10:31 WBC 3.5 L RBC 3.40 L Hgb 11.3 L Hct 33.7 L MCV 99 H Absolute Neuts (auto) 1.6 L Chloride 109 H Est GFR (MDRD) Non-Af 55 L Total Protein 5.8 L Albumin 3.4 L - EKG Interpretation by Ms EKG shows normal: Sinus rhythm Rate: Bradycardia - Rate 47, sinus bradycardia, normal axis, normal intervals, QTC 411. No acute findings. Discharge - Discharge Clinical Impression: Vertigo Condition: Stable Disposition: HOME, SELF-CARE Instructions: Vertigo ([facility]) Additional Instructions: As discussed please take medication as prescribed. Call [facility] to schedule a follow-up tomorrow if your symptoms have not dramatically improved. Return to the emergency department for any new or worsening concerns. Prescriptions: Meclizine HCl [Antivert 25 mg Tablet] 25 mg PO TID PRN #21 tablet PRN Reason: Referrals: DOMINGA JEROME MD [ACTIVE STAFF] - Follow up as needed
[2020-08-24 11:08] LABS: ABSOLUTE EOSINOPHILS # (AUTO) 0.1 10^3/uL (0.0-0.6); ABSOLUTE LYMPHOCYTES (AUTO) 1.6 10^3/uL (0.5-4.7); ABSOLUTE MONOCYTES (AUTO) 0.3 10^3/uL (0.1-1.4); ABSOLUTE NEUT (AUTO) 1.6 10^3/uL (1.7-8.2); BASOPHILS % (AUTO) 0.8 % (0-2); EOSINOPHILS % (AUTO) 2.5 % (0-6); HEMATOCRIT 33.7 % (36.0-47.0); HEMOGLOBIN 11.3 g/dL (12.0-15.5); LYMPHOCYTES % (AUTO) 44.2 % (13-45); MEAN CORPUSCULAR HEMOGLOBIN 33.2 pg (27.0-33.4); MEAN CORPUSCULAR HGB CONC 33.6 g/dL (32.0-36.0); MEAN CORPUSCULAR VOLUME 99 fl (80-97); MONOCYTES % (AUTO) 8.3 % (3-13); PLATELET COUNT 237 10^3/uL (150-450); RED CELL DISTRIBUTION WIDTH 13.1 % (11.5-14.0); SEGMENTED NEUTROPHILS % (AUTO) 44.2 % (42-78); TOTAL CELLS COUNTED % (AUTO) 100 %; WHITE BLOOD COUNT 3.5 10^3/uL (4.0-10.5)
[2020-08-24 11:33] LABS: ALBUMIN 3.4 g/dL (3.5-5.0); ALKALINE PHOSPHATASE 50 U/L (38-126); ANION GAP 5 (5-19); ASPARTATE AMINO TRANSFERASE 17 U/L (14-36); BILIRUBIN,DIRECT 0.2 mg/dL (0.0-0.4); BILIRUBIN,TOTAL 0.5 mg/dL (0.2-1.3); BLOOD UREA NITROGEN 11 mg/dL (7-20); CALCIUM 8.8 mg/dL (8.4-10.2); CARBON DIOXIDE 24 mmol/L (22-30); CHLORIDE 109 mmol/L (98-107); GLUCOSE 100 mg/dL (75-110); POTASSIUM 4.4 mmol/L (3.6-5.0); TOTAL PROTEIN 5.8 g/dL (6.3-8.2)
[2020-08-24 12:10] LABS: APPEARANCE,URINE CLEAR; BILIRUBIN,URINE NEGATIVE (NEGATIVE); COLOR,URINE STRAW; GLUCOSE, URINE NEGATIVE (NEGATIVE); KETONES,URINE NEGATIVE (NEGATIVE); LEUKOCYTE ESTERASE,URINE NEGATIVE (NEGATIVE); NITRITE,URINE NEGATIVE (NEGATIVE); PROTEIN,URINE NEGATIVE (NEGATIVE); URINE SPECIFIC GRAVITY 1.003; UROBILINOGEN,URINE NEGATIVE mg/dL (<2.0)
--- NOTE | 2020-08-24 12:26 | EKG REPORT ---
SEVERITY:- OTHERWISE NORMAL ECG - SINUS BRADYCARDIA : Confirmed by: Randell Azar MD 24-Aug-2020 12:25:30
[2020-08-24 13:20] VITALS: BP 138/82
== END 2020-08-24 13:18 | disposition home or self-care (01) ==
LOC: ER 09:14
DX: R42 Dizziness and giddiness (principal); R51.9 Headache, unspecified; Z88.2 Allergy status to sulfonamides; Z79.899 Other long term (current) drug therapy; I10 Essential (primary) hypertension
CPT/HCPCS: 36415; 80053; 81001; 84443; 85025; 93005; 93010; 99284